=== PATIENT | male | born 1960 | race Caucasian/White ===

== ENCOUNTER 2025-02-24 10:54 | Emergency (ER) | payer BC ==
[~2025-02-24 10:54] MED LIST: [UNRECOGNIZED DRUG - REMARK] XX SCH
[2025-02-24] MEDS: LIDOCAINE 2% 5ML JELLY UROJET TOP ONE ×2 (11:05→11:10)
[2025-02-24] MEDS: MIDAZOLAM INJ 2MG/2ML VIAL IV ONE (11:09)
[2025-02-24 11:19] LABS: BASO # 0.1 10^3/uL (0.0-0.2); BASO % 0.5 % (0.0-1.0); EOS # 0.2 10^3/uL (0.0-0.5); EOS % 1.1 % (0.0-3.0); HEMATOCRIT 44.1 % (42.0-52.0); HEMOGLOBIN 14.6 g/dl (13.5-17.5); LYMPH # 6.2 10^3/uL (1.5-5.0); LYMPH % 44.4 % (24.0-44.0); MEAN CORPUSCULAR HGB CONC 33.1 g/dl (32.0-36.5); MEAN CORPUSCULAR VOLUME 96.7 fl (80.0-96.0); MONO # 1.1 10^3/uL (0.0-0.8); MONO % 7.5 % (2.0-8.0); NEUTROPHILS # 6.3 10^3/uL (1.5-8.5); NEUTROPHILS % 44.9 % (36.0-66.0); PLATELET COUNT, AUTOMATED 334 10^3/uL (150-450); RED BLOOD COUNT 4.56 10^6/uL (4.30-6.10)
[2025-02-24] MEDS: MIDAZOLAM INJ 2MG/2ML VIAL IV PRN (11:19)
[2025-02-24 11:21] LABS: ABG BASE EXCESS -19.2 (-2.0-2.0); ABG HCO3 11.1 MMOL/L (22.0-26.0); ABG O2 SATURATION 99.6 % (95.0-99.0); ABG PARTIAL PRESSURE CO2 42.4 mmHg (35.0-45.0); ABG PARTIAL PRESSURE O2 345.6 mmHg (75.0-100.0); ABG STANDARD HCO3 10.8 MMOL/L. (22.0-26.0); ABG TOTAL CO2 12.4 MMOL/L (23.0-31.0); ABG pH (ARTERIAL) 7.037 UNITS (7.350-7.450)
[2025-02-24] MEDS ORDERED: ISOVUE-370 76% 100ML VIAL As Ordered ONE (11:23)
[2025-02-24] MEDS: SODIUM BICARBONATE 8.4% INJ 50ML SYRINGE IV STA (11:27)
[2025-02-24 11:46] LABS: INR 1.2; PARTIAL THROMBOPLASTIN TIME 30.4 SECONDS (24.8-34.2); PROTHROMBIN TIME 15.5 SECONDS (12.5-14.5)
[2025-02-24 11:52] LABS: CK-MB VALUE MASS 2.8 NG/ML (<3.6)
[2025-02-24 11:53] LABS: ALBUMIN 3.4 G/DL (3.2-5.2); BILIRUBIN,DIRECT 0.2 MG/DL (<0.4); BILIRUBIN,TOTAL 0.6 MG/DL (0.3-1.2); CALCIUM LEVEL 8.7 MG/DL (8.3-10.6); CREATININE FOR GFR 1.45 MG/DL (0.70-1.30); GLOMERULAR FILTRATION RATE 53.2 (>49); MAGNESIUM LEVEL 2.2 MG/DL (1.8-2.4); PHOSPHORUS LEVEL 8.5 MG/DL (2.4-5.1); POTASSIUM SERUM 3.8 MMOL/L (3.5-5.1); TOTAL PROTEIN 6.2 G/DL (5.7-8.2)
[2025-02-24 11:55] LABS: FREE T4 0.95 NG/DL (0.89-1.76); THYROID STIMULATING HORMONE 4.776 uIU/ML (0.55-4.78)
[2025-02-24] MEDS: MIDAZOLAM 100MG/100ML-0.9%NACL 100 MG in IV 1 EA IV SCH (11:57)
[2025-02-24 12:09] LABS: ABG BASE EXCESS -5.7 (-2.0-2.0); ABG HCO3 20.2 MMOL/L (22.0-26.0); ABG O2 SATURATION 94.9 % (95.0-99.0); ABG PARTIAL PRESSURE CO2 41.3 mmHg (35.0-45.0); ABG PARTIAL PRESSURE O2 83.1 mmHg (75.0-100.0); ABG STANDARD HCO3 19.8 MMOL/L. (22.0-26.0); ABG TOTAL CO2 21.5 MMOL/L (23.0-31.0); ABG pH (ARTERIAL) 7.308 UNITS (7.350-7.450)
[2025-02-24 12:37] LABS: CK-MB VALUE MASS 6.7 NG/ML (<3.6)
[2025-02-24 12:39] LABS: MB/CK RELATIVE INDEX 1.8 (< OR =4)
[2025-02-24 13:28] VITALS: BP 103/68; TEMP 97.3; O2SAT 96
[2025-02-24] MEDS: ACETAMINOPHEN 650MG SUPP PR ONE (13:29)
== END 2025-02-24 13:29 | disposition short-term general hospital (02) ==
LOC: EDBD 10:54 → M ED 10:54
DX: I46.9 Cardiac arrest, cause unspecified (principal); I44.0 Atrioventricular block, first degree; I10 Essential (primary) hypertension; E78.5 Hyperlipidemia, unspecified; Z86.79 Personal history of other diseases of the circulatory system
CPT/HCPCS: 36415; 36600; 51702; 70450; 71045; 71275; 72125; 74177; 80047; 80048; 80076; 82550; 82553; 82803; 83605; 83690; 83735; 83880; 84100; 84439; 84443; 84484; 85025; 85610; 85730; 93005; 93041; 94760; 96365; 96375; 99291; 99292; J2250; J2251; Q9967